=== PATIENT | male | born 1975 | race Two or more races ===

== ENCOUNTER 2020-04-25 11:32 | Emergency (ER) | payer MEDICAID ==
[~2020-04-25] VITALS: Ht 165.1 cm; Wt 72.6 kg
[2020-04-25 12:02] VITALS: BP 141/87
== END 2020-04-25 13:03 | disposition home or self-care (01) ==
LOC: ER 11:32
DX: S91.109A Unspecified open wound of unspecified toe(s) without damage to nail, initial encounter (principal); F17.210 Nicotine dependence, cigarettes, uncomplicated; X58.XXXA Exposure to other specified factors, initial encounter; Y93.01 Activity, walking, marching and hiking; Y92.89 Other specified places as the place of occurrence of the external cause; Y99.8 Other external cause status

== ENCOUNTER 2021-03-07 20:18 | Emergency (ER) | payer MEDICAID ==
[~2021-03-07] VITALS: Ht 180.3 cm; Wt 70.3 kg
[2021-03-08 02:30] VITALS: BP 128/78
== END 2021-03-08 02:43 | disposition home or self-care (01) ==
LOC: EDBD 20:18 → ER 20:21
DX: F10.129 Alcohol abuse with intoxication, unspecified (principal); Y90.8 Blood alcohol level of 240 mg/100 ml or more